=== PATIENT | male | born 1980 | race African-American/Black ===

== ENCOUNTER 2019-08-12 10:00 | Emergency (ER) | payer SELFPAY ==
[~2019-08-12] VITALS: Ht 193 cm; Wt 98.4 kg
--- NOTE | 2019-08-12 10:06 | NUR ---
WORSENING DIZZINESS, LIGHT SENSITIVITY SINCE 07/27 S/P CONCUSSION. PATIENT A/OX4, BREATHING EVEN AND UNLABORED, NO SOB NOTED. DR. GRANADOS AT BEDSIDE FOR EVAL.
[2019-08-12 10:45] VITALS: BP 125/95
== END 2019-08-12 10:45 | disposition home or self-care (01) ==
LOC: ER 10:05
DX: F07.81 Postconcussional syndrome (principal); R51 Headache; R42 Dizziness and giddiness
CPT/HCPCS: 82962-TC